=== PATIENT | female | born 1980 | race Caucasian/White ===

== ENCOUNTER 2016-11-28 16:56 | Emergency (ER) | payer BC, OTHER ==
[2016-11-28] MEDS ORDERED: HYDROCODONE/ACETAMINOPHEN 5/325MG TABLET ONE ×2 (17:38)
[2016-11-28] MEDS ORDERED: DIPHTH,PERTUSS(ACELL),TET VAC 0.5 ML VIAL IM V ONE (18:24)
== END 2016-11-28 18:41 | disposition home or self-care (01) ==
LOC: ED 16:56
DX: L03.011 Cellulitis of right finger (principal); F17.210 Nicotine dependence, cigarettes, uncomplicated; Z23 Encounter for immunization; Z79.899 Other long term (current) drug therapy; Z88.5 Allergy status to narcotic agent
CPT/HCPCS: 90715; 64455; 99282; 90471; 26011 ×2; 99283; A9270 ×2

== ENCOUNTER 2016-12-02 15:35 | Inpatient (IN) | payer OTHER ==
[2016-12-02] MEDS ORDERED: MORPHINE SULFATE 4 MG/ML SYRINGE ONE (16:49)
[2016-12-02] MEDS ORDERED: ONDANSETRON 4 MG/2ML 2 ML VIAL ONE (16:49)
[2016-12-02] MEDS ORDERED: BUPIVACAINE 0.5% (PRES FREE) 30 ML VIAL ONE (17:53)
[2016-12-02] MEDS ORDERED: LIDOCAINE 1% (PRES FREE) 30 ML VIAL ONE (17:53)
[2016-12-02 17:55] LABS: ABSOLUTE NEUTROPHIL COUNT 2.3 K/mm3 (1.8-7.7); BASO # 0.1 K/mm3 (0.0-0.2); BASO % 1.3 % (0.2-1.0); EOS # 0.2 (0.0-0.5); EOS % 3.2 % (0.9-2.9); HEMATOCRIT 39.5 % (37.0-47.0); HEMOGLOBIN 12.4 gm/l (12.0-16.0); IMM NEUT% 0.6 % (0-1); LYMPH # 1.9 (1.0-4.8); LYMPH % 39.9 % (15-45); MEAN CELL VOLUME 86.6 fl (81.0-99.0); MEAN CORPUSCULAR HEMOGLOBIN 27.2 pg (27.0-31.0); MEAN CORPUSCULAR HGB CONC 31.4 g/dl (33.0-37.0); MONO # 0.3 (0.0-0.8); MONO % 5.6 % (4-12); NEUT % 49.4 % (43-75); PLATELET COUNT 437 K/mm3 (130-400); RED CELL DISTRIBUTION WIDTH 16.3 % (11.5-14.5)
[2016-12-02 17:58] LABS: ALB/GLOB RATIO 1.5 (>1.0); ALBUMIN 4.6 gm/dL (3.5-5.7); CALCIUM 9.1 mg/dL (8.6-10.3)
[2016-12-02] MEDS ORDERED: LACTATED RINGERS 1,000 ML ONE (18:05)
--- NOTE | 2016-12-02 19:13 | PCMBPN ---
Brief Post Op Note: Date of Procedure: 12/02/16 Start Time: 1800 Preoperative Diagnosis: 1. right index finger infection Postoperative Diagnosis: 1. Same Procedure: right index finger irrigation and debridement Surgeon: Alec Kramer MD Assist: none Anesthesia: none (surgeon administered digital block with 0.5% bupivicaine, 1% lidocaine) Findings: gross purulence with necrotic tissue in the pulp of the finger, no involvement of the flexor tendon Condition: stable to MedSurg Complications: none IV Fluids: 200 mLs of LR Urine Output: 0 mLs Estimated Blood Loss: 5 mLs Tourniquet Time: none Specimens: culture swabs x 2 Implants: iodoform gauze Drains: none Alec Kramer MD
[2016-12-02] MEDS ORDERED: MENTHOL/CETYLPYRD 1 EACH LOZENGE PO PRN (19:14)
[2016-12-02] MEDS ORDERED: MAGNESIUM HYDROXIDE 30 ML UDCUP PO PRN (19:14)
[2016-12-02] MEDS ORDERED: BLISTEX LIPSTICK 1 EACH TP PRN (19:14)
[2016-12-02] MEDS ORDERED: TRAZODONE HCL 50 MG TABLET PO PRN (19:14)
[2016-12-02 19:22] VITALS: BMI 17.4
[2016-12-02] MEDS ORDERED: PUMP TUBING ONE (19:41)
[2016-12-02] MEDS: OXYCODONE/ACETAMINOPHEN 5/325 MG TABLET PO PRN ×2 (19:50→23:44)
[2016-12-02] MEDS: D5 1/2NS with 20 mEq KCL 1,000 ML IV SCH (19:51)
[2016-12-02] MEDS ORDERED: VANCOMYCIN HCL 1 G in SODIUM CHLORIDE 0.9% 250 ML IV ONE (20:00)
[2016-12-02] MEDS: DOCUSATE SODIUM 100 MG CAPSULE PO SCH (21:55)
[2016-12-02] MEDS: SENNOSIDES 8.6 MG TABLET PO SCH (21:55)
[2016-12-02] MEDS: HYDROMORPHONE HCL 2 MG/ML SYRINGE IV PRN (22:04)
[2016-12-03] MEDS: HYDROMORPHONE HCL 2 MG/ML SYRINGE IV PRN ×4 (02:06→23:17)
--- NOTE | 2016-12-03 05:27 | HP ---
Shaunna ASKEW : 1980 [id number] DATE OF SERVICE: December 02, 2016 HISTORY OF PRESENT ILLNESS: This is a 36-year-old right-hand dominant female seen previously in the emergency department with complaints of infection in her right index finger and she had I&D, but no cultures or laboratories were obtained. She was started on antibiotics and told to follow up with her primary care doctor. I do not believe that she has done so. She returned today with increasing pain and discoloration in the finger. The emergency department consulted orthopedics to evaluate and treat. She complains of isolated pain in the distal portion of her right index finger with pain that is advancing up the finger and difficulty with any motion in the digit. She denies knowing how the infection got started, but that she thinks that it came up next to the nail. She states that she has been trying to keep it clean and that she has been taking the medications that she was given at her previous visit. She has no previous complaints of similar injuries. She denies any open wounds to the hand prior to this happening. PAST MEDICAL HISTORY: Is significant for anxiety and depression. PAST SURGICAL HISTORY: Includes an appendectomy. SOCIAL HISTORY: She lives locally. She smokes cigarettes. She denies alcohol or drug use. REVIEW OF SYSTEMS: Is negative for constitutional, cardiovascular or respiratory complaints. PHYSICAL EXAM: GENERAL: This is a somewhat cachectic appearing female. She appears her stated age. She is awake, alert and conversant throughout the encounter. Normal mood and affect. FOCUS MUSCULOSKELETAL EXAMINATION OF HER RIGHT INDEX FINGER: Shows significant purulence, erythema and even some areas of necrotic tissue over the radial border of the distal phalanx in the area around the nail. She is tender to palpation there. She does not have significant fusiform swelling along the flexor tendons. She does not have significant appeared compromise of the PIP or DIP joints. There may be some purulence underneath the nail. The finger is erythematous. She has a well perfused hand with intact sensation up to the level of the swelling and no other lesions noted. LABORATORIES: Are still pending. IMAGING: No imaging at this time. ASSESSMENT: This is a 36-year-old right handed dominant female with what appears to be a persistent abscess over her right index finger despite oral antibiotics and a previous emergency room I&D. PLAN: I&D in the operating room under digital block. We will admit her to the hospital; we will put a wick in this and start her on soaks tomorrow with intravenous antibiotics. We will get cultures in the operating room today and see if we can get an identification to be able to direct future antibiotic treatment. Risks, benefits and alternatives were discussed with the patient and she understands and will proceed. We will get her over to the operating room for an I&D shortly. Job [id number] STAT Cc: [facility]
[2016-12-03] MEDS: OXYCODONE/ACETAMINOPHEN 5/325 MG TABLET PO PRN ×2 (05:38→09:40)
[2016-12-03 05:50] LABS: ABSOLUTE NEUTROPHIL COUNT 2.3 K/mm3 (1.8-7.7); BASO # 0.1 K/mm3 (0.0-0.2); BASO % 1.1 % (0.2-1.0); EOS # 0.3 (0.0-0.5); EOS % 4.9 % (0.9-2.9); HEMATOCRIT 31.3 % (37.0-47.0); HEMOGLOBIN 9.9 gm/l (12.0-16.0); IMM NEUT% 0.2 % (0-1); LYMPH % 48.5 % (15-45); MEAN CELL VOLUME 86.2 fl (81.0-99.0); MEAN CORPUSCULAR HEMOGLOBIN 27.3 pg (27.0-31.0); MEAN CORPUSCULAR HGB CONC 31.6 g/dl (33.0-37.0); MEAN PLATELET VOLUME 9.1 fl (7.4-10.4); MONO # 0.5 (0.0-0.8); MONO % 7.8 % (4-12); NEUT % 37.5 % (43-75); PLATELET COUNT 360 K/mm3 (130-400); RED CELL DISTRIBUTION WIDTH 16.2 % (11.5-14.5)
[2016-12-03 06:09] LABS: C-REACTIVE PROTEIN < 0.3 mg/dl (<1.0); GLOMERULAR FILTRATION RATE 94 mL/min (60-107)
[2016-12-03] MEDS: D5 1/2NS with 20 mEq KCL 1,000 ML IV SCH ×2 (07:23→18:06)
[2016-12-03] MEDS ORDERED: SODIUM CHLORIDE 500 IRRIG BOT 500 ML IR ONE (08:04)
[2016-12-03] MEDS: DOCUSATE SODIUM 100 MG CAPSULE PO SCH ×2 (08:08→20:55)
[2016-12-03] MEDS: VANCOMYCIN HCL 0.75 G in SODIUM CHLORIDE 0.9% 250 ML IV SCH ×2 (08:08→20:55)
[2016-12-03] MEDS: SENNOSIDES 8.6 MG TABLET PO SCH ×2 (08:08→20:55)
[2016-12-03] MEDS: ONDANSETRON 4 MG/2ML 2 ML VIAL IV PRN ×3 (09:46→21:11)
[2016-12-03] MEDS: OXYCODONE HCL 5 MG TABLET PO PRN ×3 (11:54→20:54)
[2016-12-03] MEDS: ACETAMINOPHEN 325 MG TABLET PO PRN (16:13)
[2016-12-04] MEDS: OXYCODONE HCL 5 MG TABLET PO PRN ×6 (05:13→23:43)
[2016-12-04] MEDS ORDERED: HYDROMORPHONE HCL 1 MG/ML SYRINGE ONE ×4 (07:10→17:49)
[2016-12-04] MEDS: D5 1/2NS with 20 mEq KCL 1,000 ML IV SCH ×3 (07:15→23:43)
[2016-12-04] MEDS: HYDROMORPHONE HCL 2 MG/ML SYRINGE IV PRN ×4 (07:15→17:53)
[2016-12-04] MEDS: SENNOSIDES 8.6 MG TABLET PO SCH ×3 (07:16→20:51)
[2016-12-04] MEDS: DOCUSATE SODIUM 100 MG CAPSULE PO SCH ×3 (07:16→20:51)
--- NOTE | 2016-12-04 07:32 | PDOC43 ---
- Subjective Findings: Patient doing OK this AM, pain control improved, no fevers or chills. Subjective: Reports Flatus, Reports Pain Tolerable - Objective Vital Signs Temperature 98.9 F 12/04/16 04:10 Pulse Rate 98 12/04/16 04:10 Respiratory Rate 20 12/04/16 04:10 Blood Pressure 140/87 12/04/16 04:10 O2 Saturation by Pulse Oximetry 99 12/04/16 04:10 Oxygen Delivery Method Room Air Oxygen Flow Rate 0 Laboratory 12/03/16 05:30 12/04/16 07:00 Active Medication Orders Category Date Time Status Oxycodone HCl [Roxicodone] Med 12/03/16 11:21 Active 5 - 15 mg PO Q3H PRN Vancomycin HCl 0.75 g Med 12/03/16 08:00 Active Sodium Chloride 0.9% 250 ml IV Q12H Intake and Output 12/02/16 12/03/16 12/04/16 23:59 23:59 23:59 Intake Total 3310 1590 Output Total 700 1600 Balance 2610 -10 General: Afebrile, No Acute Distress Lungs: Normal Air Movement Abdomen: Soft Skin: Normal Color, Warm, Dry Neurological: Grossly Intact, Alert, Oriented x 4 - Right Upper Extremity Incision: Dressing Clean/Dry/Intact, Drainage (serosanguinous) Motor: Extensor Pollicis Longus: 5/5, Finger Flexors: 5/5, Finger Extensors: 5/5 , Wrist Flexors: 5/5, Wrist Extensors: 5/5, Intrinsics: 5/5 Gross Sensation to Light Touch: Present: Median Nerve, Ulnar Nerve, Radial Nerve , Axillary Nerve Capillary Refill: < 3 Seconds - Problems (1) Abscess of finger of right hand Status: AcuteAssessment/Plan: POD#2 R index finger I&D for abscess 1. Physical Therapy: OT for ROM, daily soaks in tea-colored solution of betadine in water 2. Pain Control: Oxycodone 5-15 mg PO Q3 hrs, work to decrease narcotic requirement 3. DVT Prophylaxis: mechanical and ambulation 4. Disposition: home with PO abx once cultures/sensitivities back (Staph aureus) . 5. Medical Issues: Stable, on home meds. Alec Kramer MD
[2016-12-04] MEDS ORDERED: VANCOMYCIN HCL 0.75 G in SODIUM CHLORIDE 0.9% 250 ML IV SCH (08:00)
[2016-12-04] MEDS: ONDANSETRON 4 MG/2ML 2 ML VIAL IV PRN ×2 (08:55→17:56)
[2016-12-04] MEDS ORDERED: SODIUM CHLORIDE 500 IRRIG BOT 500 ML IR ONE ×2 (11:05→11:49)
[2016-12-04] MEDS: VANCOMYCIN HCL IV SCH (16:38)
[2016-12-04] MEDS: SODIUM CHLORIDE 0.9% IV SCH (16:38)
[2016-12-04] MEDS: ACETAMINOPHEN 325 MG TABLET PO PRN (20:52)
[2016-12-05] MEDS: SODIUM CHLORIDE 0.9% IV SCH ×3 (01:11→17:07)
[2016-12-05] MEDS: VANCOMYCIN HCL IV SCH ×3 (01:11→17:07)
[2016-12-05] MEDS: ONDANSETRON 4 MG/2ML 2 ML VIAL IV PRN (01:17)
[2016-12-05] MEDS: HYDROMORPHONE HCL 2 MG/ML SYRINGE IV PRN ×2 (01:18→06:34)
[2016-12-05] MEDS: OXYCODONE HCL 5 MG TABLET PO PRN ×6 (04:29→21:17)
[2016-12-05] MEDS: ACETAMINOPHEN 325 MG TABLET PO PRN ×2 (04:29→08:37)
[2016-12-05] MEDS: SENNOSIDES 8.6 MG TABLET PO SCH ×2 (08:36→21:20)
[2016-12-05] MEDS: DOCUSATE SODIUM 100 MG CAPSULE PO SCH ×2 (08:36→21:20)
[2016-12-05] MEDS ORDERED: KETOROLAC TROMETHAMINE 30 MG/ML 1 ML VIAL IV ONE (08:36)
[2016-12-05] MEDS: ACETAMINOPHEN 325 MG TABLET PO SCH ×4 (08:40→22:30)
--- NOTE | 2016-12-05 08:54 | PDOC43 ---
- Subjective Findings: POD#3 s/p I&D R index finger - Doing well overall. - C/O pain that improves with current pain medication regimen. Still requires IV pain medication for breakthrough. - Tolerating PO intake - Denies N/V; Denies CP/SOB - Objective Vital Signs Temperature 98.4 F 12/05/16 08:33 Pulse Rate 94 12/05/16 08:33 Respiratory Rate 16 12/05/16 08:33 Blood Pressure 138/92 12/05/16 08:33 O2 Saturation by Pulse Oximetry 100 12/05/16 08:33 Oxygen Delivery Method Room Air Oxygen Flow Rate 0 Laboratory 12/03/16 05:30 12/04/16 07:00 Active Medication Orders Category Date Time Status Acetaminophen [Tylenol] Med 12/05/16 08:31 Ordered 650 mg PO Q6H Ibuprofen [Motrin] Med 12/05/16 15:00 Ordered 600 mg PO Q4H PRN Ketorolac Tromethamine [Toradol] Med 12/05/16 08:36 Once 30 mg IV X1 ONE Oxycodone HCl [Roxicodone] Med 12/03/16 11:21 Active 5 - 15 mg PO Q3H PRN Sodium Chloride 0.9% Flush [Normal Saline 10ml Flush] Med 12/04/16 17:00 Active 10 ml IV Q8HR Vancomycin HCl 0.8 g Med 12/04/16 17:00 Active Sodium Chloride 0.9% 250 ml IV Q8H Intake and Output 12/03/16 12/04/16 12/05/16 23:59 23:59 23:59 Intake Total 3310 3770 2349 Output Total 700 2100 3200 Balance 2610 1670 -851 General: Afebrile Neurological: Grossly Intact, Alert, Oriented x 4, Normal Speech - Right Upper Extremity Incision: Dressing Clean/Dry/Intact, Other (Dressing removed. Distal finger w/ [id number] wound on volarmedial surface with some granulation. Finger remains swollen and tender distally. No tenderness proximally over the flexor tendon sheath.) Motor: Extensor Pollicis Longus: 4/5 (Index finger limited by pain. ), Finger Flexors: 4/5 (Index finger limited by pain. ), Finger Extensors: 5/5 (Index finger limited by pain. ), Wrist Flexors: 5/5, Wrist Extensors: 5/5 Gross Sensation to Light Touch: Present: Median Nerve, Ulnar Nerve, Radial Nerve , Axillary Nerve Capillary Refill: < 3 Seconds - Problems (1) Abscess of finger of right hand Status: AcuteAssessment/Plan: POD#3 R index finger I&D for abscess 1. Physical Therapy: OT for ROM, daily soaks in Betadine/NS; RN to educate patient on soaks/daily dressing changes. 2. Pain Control: Will need to stop IV Dilaudid prior to D/C; Oxycodone 5-15 mg PO Q3 hrs; Scheduled Tylenol; NSAIDs ok. 3. DVT Prophylaxis: SCDs while in bed; Encourage ambulation. 4. ID: Culture results demonstrate Staph species; presumed S. aureus. Still awaiting speciation/sensitivities. Plan to discharge on PO Abx pending sensitivities. 4. Disposition: As above. D/C home once PO Abx regimen in place pending sensitivities --likely today. 5. Medical Issues: Stable, on home meds. Mack Aranda MD
[2016-12-05] MEDS: D5 1/2NS with 20 mEq KCL 1,000 ML IV SCH ×2 (12:24→22:26)
[2016-12-05] MEDS: IBUPROFEN 600 MG TABLET PO PRN ×2 (18:40→22:30)
[2016-12-06] MEDS: OXYCODONE HCL 5 MG TABLET PO PRN ×7 (00:13→18:30)
[2016-12-06] MEDS: VANCOMYCIN HCL IV SCH ×3 (02:16→18:07)
[2016-12-06] MEDS: SODIUM CHLORIDE 0.9% IV SCH ×3 (02:16→18:07)
[2016-12-06] MEDS: IBUPROFEN 600 MG TABLET PO PRN ×4 (02:17→18:30)
[2016-12-06] MEDS: ACETAMINOPHEN 325 MG TABLET PO SCH ×3 (03:20→15:00)
[2016-12-06] MEDS: D5 1/2NS with 20 mEq KCL 1,000 ML IV SCH (03:21)
[2016-12-06] MEDS: DOCUSATE SODIUM 100 MG CAPSULE PO SCH (09:47)
[2016-12-06] MEDS: SENNOSIDES 8.6 MG TABLET PO SCH (09:48)
[2016-12-06] MEDS ORDERED: IV START KIT ONE (13:17)
[2016-12-06 13:23] VITALS: BP 136/84
--- NOTE | 2016-12-06 17:21 | PDOC43 ---
- Subjective Findings: Pt seen this evening for Dr. Kramer. She is still having some pain but improved from yesterday. States she is ready to go home Subjective: Reports Flatus, Denies Chest Pain, Denies Nausea, Denies Vomiting, Denies Fever - Objective Vital Signs Temperature 98.2 F 12/06/16 13:00 Pulse Rate 104 12/06/16 13:00 Respiratory Rate 20 12/06/16 13:00 Blood Pressure 136/84 12/06/16 13:00 O2 Saturation by Pulse Oximetry 100 12/06/16 13:00 Oxygen Delivery Method Room Air Oxygen Flow Rate 0 Laboratory 12/03/16 05:30 12/04/16 07:00 Active Medication Orders Category Date Time Status Acetaminophen [Tylenol] Med 12/05/16 09:00 Active 650 mg PO Q6H Ibuprofen [Motrin] Med 12/05/16 15:00 Active 600 mg PO Q4H PRN Oxycodone HCl [Roxicodone] Med 12/03/16 11:21 Active 5 - 15 mg PO Q3H PRN Sodium Chloride 0.9% Flush [Normal Saline 10ml Flush] Med 12/04/16 17:00 Active 10 ml IV Q8HR Vancomycin HCl 0.8 g Med 12/04/16 17:00 Active Sodium Chloride 0.9% 250 ml IV Q8H Intake and Output 12/04/16 12/05/16 12/06/16 23:59 23:59 23:59 Intake Total 3770 3899 1081 Output Total 2100 4800 1600 Balance 0360 -211 -902 General: Afebrile HEENT: Atraumatic Lungs: Normal Air Movement Skin: Normal Color Neurological: Oriented x 4 - Right Upper Extremity Incision: Dressing Clean/Dry/Intact (Dressing is changed. Wound bella DIP. No drainage), No Drainage, No Erythema Gross Sensation to Light Touch: Present: Median Nerve, Ulnar Nerve - Problems (1) Abscess of finger of right hand Status: AcuteAssessment/Plan: POD#4 R index finger I&D for abscess 1. Physical Therapy: Daily soaks in Betadine/NS; RN to educate patient on soaks/ daily dressing changes. 2. Pain Control: Oxycodone 5-15 mg PO Q3 hrs; Scheduled Tylenol; NSAIDs ok. 3. DVT Prophylaxis: SCDs while in bed; Encourage ambulation. 4. ID: Culture results demonstrate Staph species; presumed S. aureus. Speciation /sensitivities indicate sensitivity to clindamycin. Plan to discharge on PO Abx. 4. Disposition: D/C home on Clindamycin 300mg QID PO -- D/C today. 5. Medical Issues: Stable, on home meds. Will follow up with Dr. Kramer in the next week. Abdon Campos PA-C
--- NOTE | 2016-12-08 10:23 | OP ---
Shaunna ASKEW : 1980 [id number] DATE OF SERVICE: December 02, 2016 PREOPERATIVE DIAGNOSIS: Right index finger infection. POSTOPERATIVE DIAGNOSIS: Right index finger abscess. PROCEDURE PERFORMED: RIGHT INDEX FINGER IRRIGATION AND DEBRIDEMENT. SURGEON: Alec Kramer M.D. FRONT EDGER: None. ANESTHESIA: None, this was done under surgeon administered digital block with bupivacaine and lidocaine. SPECIMENS: The material sent to the laboratory was culture swabs. FINDINGS AT THE TIME OF SURGERY: Included gross purulence with necrotic tissue in the pulp of the finger with no involvement of the flexor tendon. ESTIMATED BLOOD LOSS: 5 mL. FLUIDS REPLACED: 200 mL of crystalloid. TOURNIQUET TIME: None. IMPLANTS: Iodoform gauze. COMPLICATIONS: There were no intraoperative complications. DISPOSITION: The patient was discharged stable to [facility]. INDICATIONS: This is a 36-year-old right-hand dominant female previously seen in the emergency department for complaints of an infected right index finger. Light irrigation and debridement was performed treating this is a felon and she was started on oral antibiotics. She returned to the emergency department with complaints of worsening pain about the finger and orthopedics was consulted. It appeared that she had had an inadequate job done of drainage so we elected to take her to the operating room for a formal I&D. Risks, benefits and alternatives were discussed and she elected to proceed. Informed consent was obtained and documented in the chart and she was taken to the operating room in an expedient fashion. DESCRIPTION OF PROCEDURE: The patient was identified and marked with an indelible marker by the operating surgeon and then taken to the operating room. She was placed in the supine position on the operating room table. She received perioperative antibiotics administered by the emergency department prior to presentation to the operating room suite. She was prepped and draped in the usual sterile fashion for surgery. Operative time out was performed and confirmed by all members of the operative team. A longitudinal incision was made over the pulp of the patient's right index finger and a small amount of purulence was encountered. Exploration of the soft tissues was performed using a snap and there was debridement of soft tissue, but no bone. At the point that we felt that we had adequately exposed and drained all of the purulence and abscess the wound was copiously irrigated with sterile saline and then packed with iodoform gauze. A sterile dressing of fluffs, Kiley and tube gauze was applied. The drapes were removed. [facility] and taken postoperatively to the post anesthesia care unit and admitted to [facility] for intravenous antibiotics while we awaited cultures. Job [id number] Cc: [facility]
--- NOTE | 2016-12-08 10:24 | DS ---
Shaunna ASKEW [id number] : 1980 DATE OF ADMISSION: December 02, 2016 DATE OF DISCHARGE: December 06, 2016 DISCHARGE DIAGNOSES: Right hand index finger abscess palmar DIP. HOSPITAL PROCEDURES: I&D of right hand index finger abscess. SURGEON: Fco Richards M.D. BRIEF HISTORY: A 36-year-old right hand dominant female seen in the emergency room initially for infection of the right index finger distal phalanx. She had an I&D in the emergency room but no cultures were laboratories were obtained, subsequently discharged. She was then re-admitted through the emergency department and consulted by orthopedic surgeon, Dr. Alec Kramer. BRIEF HOSPITAL COURSE: Patient underwent in the operating room I&D of right index finger by Dr. Alec Kramer. Gram stain cultures were obtained during the time of the procedure. Cultures came back positive for Staphylococcus aureus with sensitivities. Please see laboratory and microbiology report. The patient continues to improve, although painful during her hospital course. This was managed with pain medication oxycodone. She was treated initially with intravenous vancomycin. Once the sensitivities were finished she was discharged on clindamycin 300 mg by mouth every six hours. She left the hospital in satisfactory condition without fever and improved pain control. DISCHARGE INSTRUCTIONS: 1. Instructions were given to the patient for wound management included diluted Betadine soaks. 2. Discharge antibiotics of clindamycin 300 mg every six hours. 3. The patient is discharged to follow up with Dr. Kramer in his clinic next week for wound examination, sooner if any difficulties. Job [id number] CC: [facility]
== END 2016-12-06 18:50 | disposition home or self-care (01) | DRG 581 ==
LOC: ED 15:35 → SDC 17:48 → MS 17:48 → SDC 19:14
PROVIDERS: ADMIT Orthopaedic Surgery; ATTEND Orthopaedic Surgery
PROC: 0JBJ0ZZ Excision of Right Hand Subcutaneous Tissue and Fascia, Open Approach (ICD-10-PCS; principal; 2016-12-02)
DX: L08.9 Local infection of the skin and subcutaneous tissue, unspecified (principal); F32.9 Major depressive disorder, single episode, unspecified; F41.9 Anxiety disorder, unspecified; F17.210 Nicotine dependence, cigarettes, uncomplicated; L02.511 Cutaneous abscess of right hand; A49.01 Methicillin susceptible Staphylococcus aureus infection, unspecified site